=== PATIENT | male | born 1980 | race Caucasian/White ===

== ENCOUNTER 2017-09-07 00:50 | Emergency (ER) | payer SELFPAY ==
[2017-09-07 01:20] VITALS: BP 158/94; PULSE 66; RESP 16; TEMP 98.3; O2SAT 98
[2017-09-07 02:35] LABS: BASO # 0.1 K/uL (0.0-0.2); BASO % 1.1 % (0.0-2.0); EOS # 0.2 K/uL (0.0-0.7); EOS % 2.6 % (0.0-4.0); HEMATOCRIT 45.3 % (35.0-51.0); LYMPH # 2.4 K/uL (1.0-4.3); LYMPH % 33.2 % (20.0-40.0); MEAN CELL VOLUME 93.4 fl (80.0-94.0); MEAN CORPUSCULAR HEMOGLOBIN 31.4 pg (27.0-31.0); MEAN CORPUSCULAR HGB CONC 33.6 g/dL (33.0-37.0); MONO # 0.4 K/uL (0.0-0.8); MONO % 6.2 % (0.0-10.0); NEUT # 4.1 K/uL (1.8-7.0); NEUT % 56.9 % (50.0-75.0); NRBC % 0.2 % (0.0-0.0); RED CELL DISTRIBUTION WIDTH 13.6 % (11.5-14.5); WHITE BLOOD COUNT 7.2 K/uL (4.8-10.8)
--- NOTE | 2017-09-07 03:12 | ED PDOC ---
HPI: Headache Time Seen by Provider: 09/07/17 01:27 Chief Complaint (Nursing): Headache Chief Complaint (Provider): Left Sided Facial Numbness History Per: Patient History/Exam Limitations: no limitations Onset/Duration Of Symptoms: Days (1 day ago) Current Symptoms Are (Timing): Still Present Associated Symptoms: denies: Nausea, Vomiting, Other (headache ) Additional Complaint(s): Evelio Godfrey is a 37 y/o male with no past medical or surgical history, who presents to the ED complaining of left-sided facial numbness, with an onset of 1 day ago. Patient describes the numbness as a sensation of heaviness, and reports that it has not affected his ability to speak or walk. Of note, patient denies of any focal weakness, headache, nausea, or vomiting. Past Medical History Reviewed: Historical Data, Nursing Documentation, Vital Signs Vital Signs: Last Vital Signs Temp 98.3 F 09/07/17 01:15 Pulse 66 09/07/17 01:15 Resp 16 09/07/17 01:15 BP 158/94 H 09/07/17 01:15 Pulse Ox 98 09/07/17 01:15 - Medical History PMH: No Chronic Diseases - Surgical History Surgical History: No Surg Hx - Family History Family History: States: No Known Family Hx - Home Medications Home Medications: Ambulatory Orders Medication Instructions Recorded Dicyclomine [Bentyl] 20 mg PO Q12 PRN #20 tab 05/12/15 Docusate Sodium [Colace] 100 mg PO Q12 #20 sgl 05/12/15 Acyclovir [Zovirax] 800 mg PO 5XD #35 tab 09/07/17 Peg 400/Hypromellose/Glycerin 2 drop OS Q4 PRN #15 ml 09/07/17 [Artificial Tears Drops] predniSONE [predniSONE Tab] 60 mg PO QAM #12 tab 09/07/17 - Allergies Allergies/Adverse Reactions: Allergies Allergy/AdvReac Type Severity Reaction Status Date / Time No Known Allergies Allergy Verified 09/07/17 01:15 Review of Systems ROS Statement: Except As Marked, All Systems Reviewed And Found Negative Gastrointestinal: Negative for: Nausea, Vomiting Neurological: Positive for: Numbness (Left Sded Facial Numbness and Weakness). Negative for: Weakness (Focal Weakness), Incoordination ( Trouble Walking), Change in Speech (Trouble Speaking), Headache Physical Exam - Reviewed Nursing Documentation Reviewed: Yes Vital Signs Reviewed: Yes - Physical Exam Appears: Positive for: Non-toxic, No Acute Distress Head Exam: Positive for: ATRAUMATIC, NORMOCEPHALIC Skin: Positive for: Normal Color, Warm Eye Exam: Positive for: Normal appearance, EOMI, PERRL ENT: Positive for: Normal ENT Inspection Neck: Positive for: Normal, Painless ROM, Supple Cardiovascular/Chest: Positive for: Regular Rate, Rhythm. Negative for: Murmur Respiratory: Positive for: Normal Breath Sounds. Negative for: Respiratory Distress Gastrointestinal/Abdominal: Positive for: Normal Exam, Soft. Negative for: Tenderness Back: Positive for: Normal Inspection Extremity: Positive for: Normal ROM. Negative for: Pedal Edema, Deformity Neurologic/Psych: Positive for: Alert, Oriented, Facial Droop (Left Facial Droop ) - Laboratory Results Result Diagrams: 09/07/17 01:50 - ECG O2 Sat by Pulse Oximetry: 98 (RA) Pulse Ox Interpretation: Normal Medical Decision Making Medical Decision Making: Time: --01:55 Initial Impression: --37 y/o male with left-sided facial numbness and weakness Initial Plan: --Head CT W/O Contrast --methylPREDNISolone 125mg IVP --Heplock insertion Reassess --03:20 --Labs reviewed and significant for positive mono spot test, CT Head NAD --patient stable for discharge home --Diagnosis: Sierra's Palsy -- Instructed to follow up with Dr. Lauri Man Attestation: Documented by Evangelist Noe acting as a scribe for Sorin Haynes MD. Provider Attestation: All medical record entries made by the Scribe were at my direction and personally dictated by me. I have reviewed the chart and agree that the record accurately reflects my personal performance of the history, physical exam, medical decision making, and the department course for this patient. I have also personally directed, reviewed, and agree with the discharge instructions and disposition. Disposition - Clinical Impression Clinical Impression: Sierra palsy - Patient ED Disposition Is Patient to be Admitted: No - Disposition Referrals: [facility] [Outside] Lauri Munguia MD [Staff Provider] - Disposition: Routine/Home Disposition Time: 03:00 Condition: STABLE Prescriptions: Acyclovir [Zovirax] 800 mg PO 5XD #35 tab Peg 400/Hypromellose/Glycerin [Artificial Tears Drops] 2 drop OS Q4 PRN #15 ml PRN Reason: Dry Eyes predniSONE [predniSONE Tab] 60 mg PO QAM #12 tab Instructions: Sierra Palsy (ED) Forms: [facility] (Hungarian) Print Language: LUXEMBOURGISH
--- NOTE | 2017-09-07 09:34 | CT ---
PROCEDURE: CT HEAD WITHOUT CONTRAST. HISTORY: Sierra's Palsy COMPARISON: None available. TECHNIQUE: Axial computed tomography images were obtained through the head/brain without intravenous contrast. Radiation dose: Total exam DLP = 876 mGy-cm. This CT exam was performed using one or more of the following dose reduction techniques: Automated exposure control, adjustment of the mA and/or kV according to patient size, and/or use of iterative reconstruction technique. FINDINGS: HEMORRHAGE: No intracranial hemorrhage. BRAIN: No mass effect or edema. No atrophy or chronic microvascular ischemic changes. VENTRICLES: Unremarkable. No hydrocephalus. CALVARIUM: Unremarkable. PARANASAL SINUSES: Unremarkable as visualized. No significant inflammatory changes. MASTOID AIR CELLS: Unremarkable as visualized. No inflammatory changes. OTHER FINDINGS: None. IMPRESSION: Normal CT of the Head.
== END 2017-09-07 03:22 | disposition home or self-care (01) ==
LOC: H.ER 00:50
DX: G51.0 Bell's palsy (principal)
CPT/HCPCS: 70450; 85025; 85651; 86308; 96374; 99284; J2930